=== PATIENT | male | born 1995 | race Two or more races ===

== ENCOUNTER 2020-06-22 18:42 | Emergency (ER) | payer MEDICAID, OTHER ==
[~2020-06-22] VITALS: Ht 177.8 cm; Wt 59.0 kg
[2020-06-22 18:56] VITALS: BP 143/96
== END 2020-06-22 22:40 | disposition left against medical advice (07) ==
LOC: ER 18:42
DX: R00.2 Palpitations (principal); Z53.21 Procedure and treatment not carried out due to patient leaving prior to being seen by health care provider
CPT/HCPCS: 71046